=== PATIENT | female | born 1955 | race African-American/Black ===

== ENCOUNTER 2018-07-04 07:11 | Day surgery (SDC) | payer OTHER ==
[2018-06-30 17:17] VITALS: BMI 31.7
[2018-07-04] MEDS ORDERED: MIDAZOLAM HCL 2 MG/2 ML SINGLE DOSE VIAL ONE ×3 (09:21→09:28)
[2018-07-04] MEDS ORDERED: ROPIVACAINE HCL 0.5% 30ML VIAL ONE (09:28)
[2018-07-04] MEDS ORDERED: PROPOFOL 20 ML ONE (10:02)
[2018-07-04] MEDS ORDERED: SUCCINYLCHOLINE CHLORIDE 200 MG/10 ML VIAL ONE (10:03)
[2018-07-04] MEDS ORDERED: ceFAZolin SODIUM 1 GM VIAL ONE (10:14)
[2018-07-04] MEDS ORDERED: oxyCODONE HCL 5 MG TABLET PO PRN ×2 (11:25)
[2018-07-04] MEDS ORDERED: ACETAMINOPHEN 1000 MG/100 ML VIAL (NON FORMULARY) IVPB ONE (11:25)
[2018-07-04] MEDS ORDERED: ACETAMINOPHEN 325 MG TABLET (FP) PO SCH (11:30)
[2018-07-04 12:00] VITALS: TEMP 97.5
--- NOTE | 2018-07-04 12:51 | OP ---
DATE OF OPERATION: 07/04/2018 PREOPERATIVE DIAGNOSIS: Tearing of the left shoulder rotator cuff. POSTOPERATIVE DIAGNOSIS: Impingement from the lateral acromion and coracoacromial ligament, adhesions within the joint, impingement from lateral clavicle including the distal articular surface, hypertrophic synovium, inflamed bursal tissue, tearing of the rotator cuff, and tearing of the glenoid labrum. PROCEDURE PERFORMED: Shoulder decompression of subacromial space, partial acromioplasty, and release and resection coracoacromial ligament, lysis and resection of adhesions, distal clavicectomy including the distal articular surface partial synovectomy with extensive debridement, debridement of inflamed bursal tissue, debridement of rotator cuff tear, partial glenoid labral resection. SURGEON: Peyman Hemphill MD DEVELOPMENT DISABILITY SPECIALIST: JOSE MARTIN Jackman ANESTHESIA: Neal Velazquez MD, general anesthesia. The procedure consisted of the patient being brought into the operating room and gently transferred from the stretcher to the OR table with all bony prominences well padded. The left shoulder was prepared and draped in a sterile fashion. The patient was given intravenous antibiotics and copious irrigation throughout the procedure to minimize risk for infection. A complete risk/benefit discussion which was inclusive of but not limited to infection, bleeding, , paralysis, increased pain, need for repeat surgery was conducted with the patient. The patient asked questions, understood the procedure, and desired to proceed with surgical treatment. Following sterile preparation and draping of the left shoulder, the patient was placed in the [id number] lateral decubitus position with all bony prominences well padded. A pillow was placed between the legs and below the legs to protect the neurovascular structures to the legs. Great care was taken to protect the cervical spine. An axillary roll was placed to protect the shoulder, and the brachial plexus and a pneumatic contouring support was used to position and place the patient. Following sterile preparation and draping of the left shoulder, an appropriate timeout was conducted identifying the type of surgery, the patient, the patient's site of surgery, anesthesia, and the surgeon. Following this, gentle traction of approximately 8-10 pounds was applied across the shoulder joint using a traction device. Posterior, lateral, and anterior portals were used to introduce the arthroscope and arthroscopic instruments. The glenohumeral joint was evaluated. There were noted to be adhesions within the joint preventing expansion of the joint. These were lysed and resected. Anterior and posterior recesses were without plaque and loose body. Middle glenohumeral was found to be intact as was the biceps tendon. There was noted to be tearing of the glenoid labrum, and a partial glenoid labral resection was performed. Hypertrophic synovium was identified, and extensive partial synovectomy was performed. The rotator cuff on the articular side was found to have a tear which was probed and found to be partial thickness. This was debrided using shaver and radiofrequency wand. The should joint was copiously irrigated, and our attention was turned to the subacromial space. There was noted to be inflamed bursal tissue, and extensive partial bursectomy was performed. Rotator cuff on the bursal side was found to be intact. Lateral acromion was noted to have an edge of bone impinged upon the rotator cuff, and this was debrided, and a high-speed damion and shaver were used to resect a wedge of bone taken anteriorly and posteriorly. The coracoacromial ligament was also creating impingement. This was lysed and resected. Lateral clavicle including the articular portion was creating impingement. This was debrided, and high-speed damion and shaver were used to resect the lateral clavicle including the articular portion. The shoulder joint was then copiously irrigated with sterile saline irrigant. The wounds were closed with 4-0 undyed Vicryl followed by Steri-Strips, Xeroform, 4 x 4s, combine, Elastoplast, and a shoulder immobilizer. The patient was then gently awoken from anesthesia without incident and transferred from the operating room to the recovery room in satisfactory condition. There were no intraoperative complications. Eri [id number]
[2018-07-04 13:13] VITALS: BP 144/81; PULSE 67
[2018-07-04] MEDS ORDERED: oxyCODONE HCL 10 MG SUSTAINED ACTING TABLET PO SCH (22:00)
[2018-07-04] MEDS ORDERED: GABAPENTIN 300 MG CAPSULE (FP) PO SCH (22:00)
== END 2018-07-04 12:15 | disposition home or self-care (01) ==
LOC: FASU 07:11
PROVIDERS: ATTEND Orthopaedic Surgery
PROC: 0RNK4ZZ Release Left Shoulder Joint, Percutaneous Endoscopic Approach (ICD-10-PCS; 2018-07-04)
PROC: 0PBB4ZZ Excision of Left Clavicle, Percutaneous Endoscopic Approach (ICD-10-PCS; 2018-07-04)
PROC: 0RBK4ZZ Excision of Left Shoulder Joint, Percutaneous Endoscopic Approach (ICD-10-PCS; 2018-07-04)
PROC: 0RNK4ZZ Release Left Shoulder Joint, Percutaneous Endoscopic Approach (ICD-10-PCS; 2018-07-04)
PROC: 0LQ24ZZ Repair Left Shoulder Tendon, Percutaneous Endoscopic Approach (ICD-10-PCS; principal; 2018-07-04 08:00)
DX: M75.102 Unspecified rotator cuff tear or rupture of left shoulder, not specified as traumatic (principal); M75.42 Impingement syndrome of left shoulder; M67.212 Synovial hypertrophy, not elsewhere classified, left shoulder; M75.52 Bursitis of left shoulder; M24.112 Other articular cartilage disorders, left shoulder
CPT/HCPCS: 94760